=== PATIENT | male | born 1970 | race Caucasian/White ===

== ENCOUNTER 2017-06-24 16:22 | Emergency (ER) | payer MEDICAID ==
[~2017-06-24] VITALS: Ht 167.6 cm; Wt 70.0 kg
[2017-06-24 17:28] LABS: BASOPHILS % 1.3 % (0.0-2.0); EOSINOPHILS % 11.8 % (0.0-5.0); HEMATOCRIT. 36.8 % (42.0-52.0); LYMPHOCYTES % 25.3 % (20.0-50.0); MEAN CORPUSCULAR HEMOGLOBIN 25.9 pg (28.0-32.0); MEAN CORPUSCULAR VOLUME 79.8 fL (80.0-94.0); MEAN PLATELET VOLUME 9.2 fl (7.4-10.4); MONOCYTES % 6.6 % (2.0-8.0); PLATELET 108 x1000/uL (130-400); RED BLOOD CELL COUNT 4.61 mill/uL (4.7-6.1); RED CELL DISTRIBUTION WIDTH 16.3 % (11.6-14.6)
[2017-06-24 17:31] LABS: CHLORIDE 96 mEq/L (98-107)
[2017-06-24 17:32] LABS: PROTHROMBIN TIME 10.4 sec (9.4-11.6)
[2017-06-24 17:39] LABS: BETA HYDROXYBUTYRATE 0.2 mMol/L (0.0-0.3)
[2017-06-24] MEDS ORDERED: SODIUM CHLORIDE 0.9% 1000ML BAG (SEPSIS BOLUS) IV ONE (18:15)
[2017-06-24 18:22] LABS: PHOSPHORUS 4.9 mg/dL (2.5-4.9)
[2017-06-24] MEDS ORDERED: INSULIN REGULAR (HUMULIN R) UD 100 UNITS/ML SYR IV ONE ×3 (20:30→20:45)
[2017-06-24] MEDS ORDERED: INSULIN REGULAR (HUMULIN R) 300UNITS/3ML IV SCH (20:45)
[2017-06-24 23:15] VITALS: BP 115/85
== END 2017-06-24 23:15 | disposition home or self-care (01) ==
LOC: ER 17:48
DX: E11.65 Type 2 diabetes mellitus with hyperglycemia (principal); E86.0 Dehydration; R53.81 Other malaise; R68.2 Dry mouth, unspecified
CPT/HCPCS: 36415; 80053; 82010; 82962; 83605; 83735; 84100; 84484; 85025; 85610; 93005; 96361; 96374; 99285; J1815; J7030

== ENCOUNTER 2017-07-23 04:30 | Emergency (ER) | payer MEDICAID ==
[~2017-07-23] VITALS: Ht 167.6 cm; Wt 63.0 kg
[2017-07-23 06:33] VITALS: BP 117/79
[2017-07-23] MEDS ORDERED: LIDOCAINE HCL 1% 20ML VIAL (Pyxis) INJ MC ONE (07:00)
[2017-07-23] MEDS ORDERED: BACITRACIN ZINC OINT UDPKT TOP ONE (07:00)
[2017-07-23] MEDS ORDERED: TETANUS, DIPHTHERIA, PERTUSSIS VAC/PF 0.5ML (>7YR OLD) IM ONE (07:00)
== END 2017-07-23 09:02 | disposition home or self-care (01) ==
LOC: ER 04:30
DX: S81.812A Laceration without foreign body, left lower leg, initial encounter (principal); E11.9 Type 2 diabetes mellitus without complications; W45.8XXA Other foreign body or object entering through skin, initial encounter; Y93.89 Activity, other specified; Y92.89 Other specified places as the place of occurrence of the external cause; Y99.8 Other external cause status
CPT/HCPCS: 12002; 73590; 82962; 90471; 90715; 99284; J3490; X7700; Z7610

== ENCOUNTER 2017-07-25 17:01 | Emergency (ER) | payer MEDICAID ==
[~2017-07-25] VITALS: Ht 172.7 cm; Wt 78.0 kg
[2017-07-25 17:16] VITALS: BP 92/58
== END 2017-07-25 17:25 | disposition home or self-care (01) ==
LOC: ER 17:01
DX: Z48.00 Encounter for change or removal of nonsurgical wound dressing (principal); E11.9 Type 2 diabetes mellitus without complications
CPT/HCPCS: 99283

== ENCOUNTER 2017-08-04 14:21 | Emergency (ER) | payer MEDICAID ==
[~2017-08-04] VITALS: Ht 167.6 cm; Wt 65.0 kg
[2017-08-04 14:36] VITALS: BP 98/67
== END 2017-08-04 15:01 | disposition home or self-care (01) ==
LOC: ER 14:21
DX: S81.812D Laceration without foreign body, left lower leg, subsequent encounter (principal); E11.9 Type 2 diabetes mellitus without complications; X58.XXXD Exposure to other specified factors, subsequent encounter
CPT/HCPCS: 99281

== ENCOUNTER 2022-02-14 09:52 | Inpatient (IN) | payer OTHER, MEDICAID ==
[~2022-02-14] VITALS: Ht 172.7 cm; Wt 76.9 kg
[~2022-02-14 09:52] MED LIST: GABA-532 MT; METF-416 MT
[2022-02-14] MEDS ORDERED: CALCIUM GLUCONATE 1GM PREMIX 50 ML IV ONE (10:15)
[2022-02-14] MEDS ORDERED: DEXTROSE 50% WATER 50ML SYRINGE IV ONE ×2 (10:15)
[2022-02-14 10:22] LABS: BASOPHILS % 1.3 % (0.0-2.0); EOSINOPHILS % 2.1 % (0.0-5.0); LYMPHOCYTES % 10.5 % (20.0-50.0); MEAN CORPUSCULAR HEMOGLOBIN 30.6 pg (28.0-32.0); MEAN CORPUSCULAR VOLUME 94.1 fL (80.0-94.0); MEAN PLATELET VOLUME 9.3 fl (7.4-10.4); MONOCYTES % 6.2 % (2.0-8.0); NEUTROPHILS % 79.9 % (40.0-76.0); PLATELET 81 x1000/uL (130-400); RED BLOOD CELL COUNT 3.93 mill/uL (4.7-6.1)
[2022-02-14 10:29] LABS: CHLORIDE 97 mEq/L (98-107)
[2022-02-14] MEDS ORDERED: SODIUM CHLORIDE 0.9% 1,000 ML IV NR (11:00)
[2022-02-14] MEDS ORDERED: PIPERACILLIN/TAZ 3.375G PREMIX 50 ML IV NR (13:15)
[2022-02-15] VITALS (11 sets, daily range): BP systolic 149–161; BP diastolic 84–117
[2022-02-15] MEDS ORDERED: PIPERACILLIN/TAZOBACTAM 3.375 G in DEXTROSE 5% WATER 50 ML IV SCH (09:00)
[2022-02-15] MEDS ORDERED: ONDANSETRON HCL 4MG/2ML INJ IV PRN (15:45)
[2022-02-15] MEDS ORDERED: VANCOMYCIN 1G PREMIX 200 ML IV SCH (15:45)
[2022-02-15] MEDS ORDERED: IPRATROPIUM/ALBUTEROL 0.5-3(2.5)MG/3ML NEB HHN PRN (15:45)
[2022-02-15] MEDS ORDERED: DOCUSATE SODIUM 100MG CAPSULE PO PRN (15:45)
[2022-02-15 16:33] LABS: CHLORIDE 96 mEq/L (98-107)
[2022-02-15] MEDS ORDERED: VANCOMYCIN 1500MG in DEXTROSE 5% WATER 250ML IV NR (17:00)
[2022-02-15 19:47] LABS: HEPATITIS B SURFACE ANTIGEN NEGATIVE
[2022-02-15] MEDS: PIPERACILLIN/TAZOBACTAM 3.375 G in DEXTROSE 5% WATER 50 ML IV SCH (21:23)
[2022-02-15 23:37] LABS: CREATINE KINASE 106 IU/L (39-308); CREATINE KINASE MB FRACTION 7.8 ng/mL (0.5-3.6)
[2022-02-16] VITALS: BP 136/72
[2022-02-16 04:00] VITALS: BP 141/85
[2022-02-16] MEDS: ACETAMINOPHEN 325MG TABLET PO PRN ×2 (05:36→21:45)
[2022-02-16 06:10] LABS: BASOPHILS % 1.2 % (0.0-2.0); EOSINOPHILS % 2.2 % (0.0-5.0); HEMATOCRIT. 31.2 % (42.0-52.0); HEMOGLOBIN. 10.3 g/dL (14.0-18.0); LYMPHOCYTES % 9.6 % (20.0-50.0); MEAN CORPUSCULAR HEMOGLOBIN 30.3 pg (28.0-32.0); MEAN CORPUSCULAR VOLUME 91.7 fL (80.0-94.0); MEAN PLATELET VOLUME 9.9 fl (7.4-10.4); MONOCYTES % 13.5 % (2.0-8.0); NEUTROPHILS % 73.5 % (40.0-76.0); PLATELET 70 x1000/uL (130-400); RED CELL DISTRIBUTION WIDTH 15.6 % (11.6-14.6)
[2022-02-16 06:42] LABS: CHLORIDE 99 mEq/L (98-107)
[2022-02-16] MEDS ORDERED: DEXTROSE 50% WATER 50ML SYRINGE IV PRN (06:45)
[2022-02-16 06:53] LABS: CREATINE KINASE 92 IU/L (39-308); CREATINE KINASE MB FRACTION 5.4 ng/mL (0.5-3.6); PHOSPHORUS 5.4 mg/dL (2.5-4.9)
[2022-02-16] MEDS: BLOOD SUGAR DIAGNOSTIC STRIP TEST SCH ×4 (06:59→21:00)
[2022-02-16 08:00] VITALS: BP 136/82
[2022-02-16] MEDS ORDERED: ENOXAPARIN 40MG/0.4ML SYR SUBCUT SCH (09:00)
[2022-02-16] MEDS ORDERED: ENOXAPARIN 30MG/0.3ML SYR SUBCUT SCH (09:00)
[2022-02-16] MEDS: PIPERACILLIN/TAZOBACTAM 3.375 G in DEXTROSE 5% WATER 50 ML IV SCH ×2 (09:41→20:59)
[2022-02-16 12:00] VITALS: BP 144/86
[2022-02-16] MEDS ORDERED: IPRATROPIUM BROMIDE (0.02%) 0.5MG/2.5ML NEB HHN PRN (12:30)
[2022-02-16] MEDS ORDERED: ALBUTEROL (0.083%) 2.5MG/3ML NEB HHN PRN (12:30)
[2022-02-16 16:00] VITALS: BP 135/76
[2022-02-16 20:00] VITALS: BP 163/96
[2022-02-17] VITALS (13 sets, daily range): BP systolic 118–153; BP diastolic 69–99
[2022-02-17] MEDS: BLOOD SUGAR DIAGNOSTIC STRIP TEST SCH ×2 (06:50→11:50)
[2022-02-17 06:57] LABS: BASOPHILS % 1.4 % (0.0-2.0); EOSINOPHILS % 5.3 % (0.0-5.0); HEMATOCRIT. 31.5 % (42.0-52.0); HEMOGLOBIN. 10.4 g/dL (14.0-18.0); LYMPHOCYTES % 13.4 % (20.0-50.0); MEAN CORPUSCULAR HEMOGLOBIN 30.4 pg (28.0-32.0); MEAN CORPUSCULAR VOLUME 92.1 fL (80.0-94.0); MEAN PLATELET VOLUME 9.5 fl (7.4-10.4); MONOCYTES % 13.5 % (2.0-8.0); NEUTROPHILS % 66.4 % (40.0-76.0); PLATELET 62 x1000/uL (130-400); RED BLOOD CELL COUNT 3.42 mill/uL (4.7-6.1); RED CELL DISTRIBUTION WIDTH 15.7 % (11.6-14.6)
[2022-02-17 07:03] LABS: CHLORIDE 101 mEq/L (98-107)
[2022-02-17 07:14] LABS: PHOSPHORUS 7.2 mg/dL (2.5-4.9)
[2022-02-17] MEDS: PIPERACILLIN/TAZOBACTAM 3.375 G in DEXTROSE 5% WATER 50 ML IV SCH (09:14)
[2022-02-17] MEDS ORDERED: VANCOMYCIN 750MG PREMIX 150 ML IV NR (21:00)
== END 2022-02-17 17:18 | disposition home or self-care (01) | DRG 70 ==
LOC: ER 10:25 → MICUSO 13:22 → EDBEDREQTM 13:35 → EDBEDREQ 13:35 → EDBEDREQSVC 13:35 → EDBEDREQTM 02-15 14:52 → EDBEDREQSVC 02-15 14:52 → 3WST 02-15 16:57
PROVIDERS: ADMIT Internal Medicine; ATTEND Internal Medicine
PROC: 5A1D70Z Performance of Urinary Filtration, Intermittent, Less than 6 Hours Per Day (ICD-10-PCS; principal; 2022-02-15)
DX: G93.41 Metabolic encephalopathy (principal); N18.6 End stage renal disease; E87.1 Hypo-osmolality and hyponatremia; E87.20 Acidosis, unspecified; M86.8X7 Other osteomyelitis, ankle and foot; I12.0 Hypertensive chronic kidney disease with stage 5 chronic kidney disease or end stage renal disease; Z20.822 Contact with and (suspected) exposure to COVID-19; E11.22 Type 2 diabetes mellitus with diabetic chronic kidney disease; E87.5 Hyperkalemia; E11.649 Type 2 diabetes mellitus with hypoglycemia without coma; E11.69 Type 2 diabetes mellitus with other specified complication; D63.1 Anemia in chronic kidney disease; D69.6 Thrombocytopenia, unspecified; E11.65 Type 2 diabetes mellitus with hyperglycemia; E78.5 Hyperlipidemia, unspecified; Z82.49 Family history of ischemic heart disease and other diseases of the circulatory system; Z79.4 Long term (current) use of insulin; Z91.14 Patient's other noncompliance with medication regimen; Z99.2 Dependence on renal dialysis; Z91.15 Patient's noncompliance with renal dialysis
CPT/HCPCS: 36415; 71045; 76705; 78227; 80048; 80053; 80202; 82550; 82553; 82962; 83036; 83735; 84100; 84145; 84484; 85025; 86705; 86709; 86803; 87340; 90935; 93005; 93306; 99285; A9500; J0610; J1650; J2543; J3370; J7060